=== PATIENT | female | born 1985 | race Caucasian/White ===

== ENCOUNTER 2023-05-31 19:16 | Emergency (ER) | payer OTHER, BC, SELFPAY ==
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
[2023-05-31 19:38] VITALS: BP 147/99; PULSE 114; RESP 20; TEMP 36.6; O2SAT 99
== END 2023-05-31 19:51 | disposition home or self-care (01) ==
PROVIDERS: Emergency Provider Nurse Practitioner Family
DX: M62.830 Muscle spasm of back (principal); M54.41 Lumbago with sciatica, right side
CPT/HCPCS: 99213; G0463